=== PATIENT | male | born 1980 | race Two or more races ===

== ENCOUNTER 2016-09-13 17:50 | Emergency (ER) | payer SELFPAY ==
--- NOTE | ~2016-09-13 | CR72 ---
[facility] A Service of [facility] & [facility] RADIOLOGY TEXT RESULTS PATIENT: JOSE MEDINA LOCATION: [facility] : 82 UNIT #: [id number] AGE: [address]: Berto Moore MD SEX: M ORDER DR: [id number] [facility] [address] [place], [place] [address] [id number] MR#: [id number] Acc #: [id number] NAME: JOSE MEDINA : 1980 SEX: M STUDY DATE/TIME: 09/13/2016 17:54 UNIT: [facility] ROOM: STUDY DESCRIPTION: CR Chest Single View Portable Attending Physician: Berto Moore M.D. Ordering Physician: Berto Moore M.D. MEDICAL IMAGING REPORT This report is preliminary unless electronic signature is present EXAM AP portable chest 09/13/2016 at 17:54 HISTORY 36-year-old male with chest pain and pressure and dizziness, nausea today. 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 No documented injury. COMPARISON None. FINDINGS A single AP portable view of the chest shows both lungs to be clear. The heart is normal in size. The mediastinal contour is normal. No significant bone abnormalities are seen. IMPRESSION Normal portable chest. Dictated by... Aaliyah Joy M.D. THIS IS AN ELECTRONICALLY VERIFIED REPORT Aaliyah Joy M.D. at 09/14/2016 9:14 AM EMA/homa TD: 09/13/2016 22:42 JOB #: [id number] MEDICAL IMAGING REPORT COPY
--- NOTE | ~2016-09-13 | EKG ---
PATIENT: JOSE MEDINA UNIT #: [id number] Ventricular Rate: 79 BPM Atrial Rate: 79 BPM P-R Interval: 130 ms QRS Duration: 74 ms Q-T Interval: 354 ms QTC Calculation(Bezet): 405 ms P [place]: 82 degrees Calculated R [place]: 36 degrees Calculated T [place]: 22 degrees Diagnosis Line: Normal sinus rhythm Diagnosis Line: Normal ECG Diagnosis Line: No previous ECGs available Diagnosis Line: Confirmed by TRA LOZADA MD ([id number]) on 09/13/2016 Diagnosis Line: 6:28:38 PM INTERPRETING MD: NEVILLE AUSTIN
[2016-09-13 17:16] LABS: BASOPHIL# 0.1 X10e3 (0-0.3); BASOPHIL% 0.6 % (0-2.5); EOSINOPHIL# 0.1 X10e3 (0-0.7); EOSINOPHIL% 1.2 % (0.0-7.0); HEMATOCRIT 41.5 % (38.0-50.0); HEMOGLOBIN 14.4 gm/dL (13.0-16.0); LYMPHOCYTE# 1.6 X10e3 (1.0-3.5); LYMPHOCYTE% 16.2 % (17.0-45.0); MEAN CELL VOLUME 86.5 FL (83-96); MEAN CORPUSCULAR HGB CONC 34.7 g/dL (30-36); MEAN PLATELET VOLUME 9.4 FL (6.5-11.5); MONOCYTE# 0.6 X10e3 (0-1.0); MONOCYTE% 6.4 % (3.0-12.0); NEUTROPHIL# 7.3 X10e3 (1.5-7.1); NEUTROPHIL% 75.6 % (40-75); PLATELET COUNT 156 X10e3 (140-420); RED CELL DISTRIBUTION WIDTH 12.9 % (11.0-15.5); WHITE BLOOD COUNT 9.6 X10e3 (4.0-10.5)
[2016-09-13 17:17] LABS: DIFF IND NO
[2016-09-13 17:45] LABS: ALBUMIN SERUM 4.6 g/dL (3.5-5.0); ALKALINE PHOSPHATASE 39 U/L (32-92); ALT (SGPT) 83 U/L (10-40); AST (SGOT) 43 U/L (10-42); BILIRUBIN, DIRECT 0.1 mg/dL (0.0-0.2); BILIRUBIN,INDIRECT 0.5 mg/dL (0.0-0.9); BILIRUBIN,TOTAL 0.6 mg/dL (0.2-2.0); BLOOD UREA NITROGEN 26 mg/dL (9-23); CALCIUM SERUM 9.4 mg/dL (8.4-10.2); CARBON DIOXIDE 25 mmol/L (22-31); CHLORIDE 101 mmol/L (100-111); GLOM FILT RATE Estimated ABOVE60 mL/min (>60); GLUCOSE FASTING 92 mg/dL (70-110); POTASSIUM 3.6 mmol/L (3.5-5.1); PROTEIN TOTAL SERUM 7.9 g/dL (6.0-8.3); SODIUM 136 mmol/L (135-145)
[2016-09-13 17:52] LABS: POC - CKMB 1.5 ng/mL (0.0-7.9); POC - TROPONIN <0.05 ng/mL (<=0.05)
[2016-09-13 19:42] LABS: POC - CKMB 1.4 ng/mL (0.0-7.9); POC - TROPONIN <0.05 ng/mL (<=0.05)
== END 2016-09-13 20:19 | disposition home or self-care (01) ==
LOC: CED 17:50
PROVIDERS: Emergency Medicine; Student in an Organized Health Care Education/Training Program
DX: R07.89 Other chest pain (principal); E78.5 Hyperlipidemia, unspecified; Z88.0 Allergy status to penicillin
CPT/HCPCS: 36415; 71010; 80048; 80076; 82553; 84484; 85025; 93005; 99284